=== PATIENT | male | born 1995 | race Two or more races ===

== ENCOUNTER 2023-04-25 17:33 | Emergency (ER) | payer BC ==
[~2023-04-25] VITALS: Ht 177.8 cm; Wt 102.3 kg
[2023-04-25 18:44] LABS: COVID AG,FIA SOURCE NASAL SWAB
[2023-04-25 19:24] LABS: RAPID GROUP A STREP NEGATIVE (NEGATIVE)
[2023-04-25 19:25] LABS: SARS-COV2 (COVID) ANTIGEN,FIA Negative (Negative)
[2023-04-25 19:27] LABS: INFLUENZA TYPE A NEGATIVE FOR TYPE A (NEGATIVE); INFLUENZA TYPE B NEGATIVE FOR TYPE B (NEGATIVE)
[2023-04-25] MEDS: ACETAMINOPHEN 500 MG TABLET PO ONE (20:18)
[2023-04-25] MEDS: DEXAMETHASONE 4 MG TABLET PO ONE (20:18)
[2023-04-25 20:29] VITALS: BP 108/71; PULSE 85; RESP 16; TEMP 99.8
== END 2023-04-25 20:51 | disposition home or self-care (01) ==
LOC: EMS 17:34
DX: J02.9 Acute pharyngitis, unspecified (principal); Z98.890 Other specified postprocedural states; Z20.822 Contact with and (suspected) exposure to COVID-19
CPT/HCPCS: 99283; 87426; 87430; 87804; J8540